=== PATIENT | female | born 1980 | race Caucasian/White ===

== ENCOUNTER 2020-04-26 22:53 | Emergency (ER) | payer OTHER ==
[~2020-04-26] VITALS: Ht 157.5 cm; Wt 56.7 kg
--- NOTE | ~2020-04-26 | PROC ---
[address] [address] PROCEDURE REPORT Name: ZULEIKA RICE Room: [facility].#: [id number] Admission: 04/26/20 Attend Phys: Discharge: 04/27/20 Date of : 78 Report #: [id number] THIS REPORT FOR: //name// cc: Roberto Tran MD, Matthew W. MD ~ THIS REPORT FOR: //name// For GI report, please see the Provation report in [employer] content. By: [id number] Records Staff LUCIEN /COLLINS
[2020-04-26 23:29] LABS: HEMATOCRIT 40.9 % (37.0-47.0); HEMOGLOBIN 14.3 gm/dL (12.0-15.0); MCH 32.2 pg (26.0-34.0); MCV 92.2 fL (80.0-100.0); MPV 9.2 fl. (7.2-11.1); NUCLEATED RBCS 0 /100WBC; PLATELET COUNT* 267 thou/uL (150-400); RBC 4.44 mil/uL (4.20-5.00); RDW-CV 12.8 % (10.5-14.5); WBC 20.2 thou/uL (4.0-11.0)
[2020-04-26 23:32] LABS: CALCIUM 8.7 mg/dL (8.5-10.1); CREATININE 1.1 mg/dL (0.6-1.3); POTASSIUM 3.2 mmol/L (3.5-5.1)
[2020-04-26 23:35] LABS: PROTIME 10.3 Seconds (9.20-11.50)
[2020-04-26 23:37] LABS: ALBUMIN 4.4 g/dL (3.4-5.0); TOTAL PROTEIN 7.6 g/dL (6.4-8.2)
[2020-04-26 23:43] LABS: ABSOLUTE EOSINOPHILS 0.2 thou/uL (0.0-0.7); ABSOLUTE LYMPHOCYTES 1.4 thou/uL (0.8-5.3); ABSOLUTE MONOCYTES 0.6 thou/uL (0.0-1.2)
[2020-04-26 23:44] LABS: PLATELET ESTIMATE ADEQUATE
[2020-04-27 01:15] VITALS: BP 121/78
== END 2020-04-27 01:15 | disposition still patient (30) ==
LOC: M.ERS 22:53
PROVIDERS: Personal Emergency Response Attendant
DX: T17.228A Food in pharynx causing other injury, initial encounter (principal); Z88.0 Allergy status to penicillin; X58.XXXA Exposure to other specified factors, initial encounter; Y93.89 Activity, other specified; Y92.89 Other specified places as the place of occurrence of the external cause; Y99.8 Other external cause status